=== PATIENT | female | born 1960 | race Caucasian/White ===

== ENCOUNTER 2020-04-27 09:36 | Inpatient (IN) | payer BC, OTHER ==
[~2020-04-27] VITALS: Ht 162.6 cm; Wt 106.6 kg
[2020-04-27] MEDS ORDERED: LOSARTAN-HCTZ1 EAC2 PO (10:53)
[2020-04-27] MEDS ORDERED: LEVOTHYROXINE88 MCG PO (10:53)
[2020-04-27] MEDS ORDERED: XALATAN OP SOL2.5 ML EYEBOTH (10:53)
[2020-04-27] MEDS ORDERED: BENADRYL25 MG PO (15:18)
[2020-04-27] MEDS ORDERED: ZYRTEC10 MG PO (15:18)
== END 2020-04-29 15:11 | disposition home or self-care (01) | DRG 742 ==
LOC: OR 09:36 → M/S 14:58 → OR 15:03 → M/S 15:03
PROVIDERS: ADMIT Obstetrics & Gynecology
PROC: 0JQC3ZZ Repair Pelvic Region Subcutaneous Tissue and Fascia, Percutaneous Approach (ICD-10-PCS; 2020-04-27)
PROC: 0TJB8ZZ Inspection of Bladder, Via Natural or Artificial Opening Endoscopic (ICD-10-PCS; 2020-04-27)
PROC: 0UT97ZZ Resection of Uterus, Via Natural or Artificial Opening (ICD-10-PCS; principal; 2020-04-27 13:00)
PROC: 0USG7ZZ Reposition Vagina, Via Natural or Artificial Opening (ICD-10-PCS; 2020-04-27 13:00)
PROC: 0JQC3ZZ Repair Pelvic Region Subcutaneous Tissue and Fascia, Percutaneous Approach (ICD-10-PCS; 2020-04-27 13:00)
DX: N81.4 Uterovaginal prolapse, unspecified (principal); Z68.41 Body mass index [BMI] 40.0-44.9, adult; I10 Essential (primary) hypertension; R33.9 Retention of urine, unspecified; E03.9 Hypothyroidism, unspecified; H40.9 Unspecified glaucoma; E66.01 Morbid (severe) obesity due to excess calories
CPT/HCPCS: 88172; 88341; 88342; C1769; J0690; J1100; J1885; J2001; J2250; J2405; J2550; J2704; J2710; J2765; J2795; J3010; J7120

== ENCOUNTER 2021-03-09 13:44 | Emergency (ER) | payer BC, OTHER ==
[~2021-03-09] VITALS: Ht 165.1 cm; Wt 100.7 kg
[~2021-03-09 13:44] MED LIST: BENADRYL25 MG PO; LEVOTHYROXINE88 MCG PO; LOSARTAN-HCTZ1 EAC2 PO; XALATAN OP SOL2.5 ML EYEBOTH; ZYRTEC10 MG PO
[2021-03-09] MEDS ORDERED: TESSALON PERLE100 MG PO (16:28)
== END 2021-03-09 16:40 | disposition home or self-care (01) ==
LOC: ER1 13:44
DX: U07.1 COVID-19 (principal); J12.82 Pneumonia due to coronavirus disease 2019; Z23 Encounter for immunization; I10 Essential (primary) hypertension
CPT/HCPCS: 71045; 99284; M0243

== ENCOUNTER → 2021-03-17 | Outpatient (CLI) | payer BC ==
[~2021-03-17] MED LIST changes: +TESSALON PERLE100 MG PO
== END ==
LOC: RAD 10:10
DX: U07.1 COVID-19 (principal); J12.82 Pneumonia due to coronavirus disease 2019
CPT/HCPCS: 71046